=== PATIENT | female | born 1965 | race Two or more races ===

== ENCOUNTER 2018-01-14 08:29 | Outpatient (CLI) | payer OTHER | END 2018-01-14 16:21 | disposition home or self-care (01) | LOC: SONOGRAMA 08:29 | DX: E04.1 Nontoxic single thyroid nodule (principal) ==

== ENCOUNTER 2020-09-19 10:48 | Outpatient (CLI) | payer OTHER | END 2020-09-19 11:20 | disposition home or self-care (01) | LOC: OFIC 805 10:48 | PROVIDERS: ATTEND Otolaryngology Otology & Neurotology | DX: J02.8 Acute pharyngitis due to other specified organisms (principal); K21.00 Gastro-esophageal reflux disease with esophagitis, without bleeding; R09.89 Other specified symptoms and signs involving the circulatory and respiratory systems; R13.19 Other dysphagia; H60.8X3 Other otitis externa, bilateral ==

== ENCOUNTER → 2020-10-17 | Outpatient (CLI) | payer OTHER | END | disposition home or self-care (01) | LOC: OFIC 805 10:21 | PROVIDERS: ATTEND Otolaryngology Otology & Neurotology | DX: K21.9 Gastro-esophageal reflux disease without esophagitis (principal); R09.89 Other specified symptoms and signs involving the circulatory and respiratory systems; R13.19 Other dysphagia; J01.00 Acute maxillary sinusitis, unspecified ==

== ENCOUNTER 2024-06-13 02:10 | Emergency (ER) | payer OTHER ==
[~2024-06-13] VITALS: Ht 165.1 cm; Wt 81.6 kg
[2024-06-13] MEDS ORDERED: SYNTHROID137 MCG PO (02:19)
[2024-06-13] MEDS ORDERED: CALTRATE 600 +1 EAC1 (02:20)
[2024-06-13] MEDS ORDERED: CALCITRIOL0.25 MCG PO (02:20)
[2024-06-13] MEDS ORDERED: HYOSCYAMINE SULFATE 0.125 MG TAB.SUBL SL STA (02:44)
[2024-06-13] MEDS ORDERED: LACTOBACILLUS ACIDOPHILUS 1 CAP CAP PO STA (02:44)
[2024-06-13] MEDS ORDERED: FAMOTIDINE/PF 20 MG/2 ML VIAL IV PUSH STA (02:44)
[2024-06-13] MEDS ORDERED: ONDANSETRON HCL 2 MG/ML VIAL IV STA (02:44)
[2024-06-13] MEDS ORDERED: 0.9 % SODIUM CHLORIDE 1,000 ML IV ONE (02:45)
[2024-06-13] MEDS ORDERED: ONDANSETRON HCL 2 MG/ML VIAL ONE (02:47)
[2024-06-13] MEDS ORDERED: FAMOTIDINE/PF 20 MG/2 ML VIAL ONE (02:48)
[2024-06-13] MEDS ORDERED: LACTOBACILLUS ACIDOPHILUS 1 CAP CAP PO ONE (02:48)
[2024-06-13] MEDS ORDERED: HYOSCYAMINE SULFATE 0.125 MG TAB.SUBL ONE (02:48)
[2024-06-13 03:29] LABS: HEMATOCRIT 37.8 % (36.0-45.00); HEMOGLOBIN 12.7 g/dL (12.0-15.00); MEAN CELL VOLUME 86.4 fL (80.00-100.00); MEAN CORPUSCULAR HGB CONC 33.6 g/dl (32.0-36.0); PLATELET COUNT 297 K/uL (150-450); RED BLOOD COUNT 4.38 M/uL (4.00-6.00); RED CELL DISTRIBUTION WIDTH 13.7 % (11.5-14.5)
[2024-06-13 03:30] LABS: URINE APPEARANCE Cloudy; URINE BILIRRUBIN Negative (NEGATIVE); URINE BLOOD Large; URINE COLOR Yellow; URINE GLUCOSE Negative (NEGATIVE); URINE LEUKOCYTE Negative; URINE NITRATE Negative; URINE PROTEIN Trace (NEGATIVE)
[2024-06-13 03:34] LABS: URINE BACTERIA 1379.6 uL (0.0-1933); URINE CAST 1.98 uL (0.0-1.40); URINE EPITHELIAL CELLS 32.9 uL (0.0-38.8); URINE RBC 473.9 uL (0.0-20.8); URINE WBC 35.5 uL (0.0-23.2)
[2024-06-13 03:38] LABS: URINE KETONE 40 (NEGATIVE)
[2024-06-13 03:42] LABS: CALCIUM 8.6 mg/dL (8.5-10.1); CREATININE SERUM 0.9 mg/dL (0.55-1.02); GFR 64.54; POTASSIUM 3.61 mEq/L (3.5-5.1)
[2024-06-13] MEDS ORDERED: PEPCID40 MG PO (07:59)
[2024-06-13] MEDS ORDERED: ONDANSETRON ODT8 MG PO (07:59)
[2024-06-13] MEDS ORDERED: INTESTINEX680 M1 PO (07:59)
[2024-06-13] MEDS ORDERED: CEPHALEXIN250 MG/5 M PO (08:19)
== END 2024-06-13 08:33 ==
LOC: ER 02:11
PROVIDERS: General Practice
DX: R11.10 Vomiting, unspecified (principal); R19.7 Diarrhea, unspecified; E03.8 Other specified hypothyroidism; Z88.6 Allergy status to analgesic agent